=== PATIENT | female | born 1995 | race Caucasian/White ===

== ENCOUNTER 2019-02-23 19:54 | Emergency (ER) | payer MEDICAID ==
[~2019-02-23] VITALS: Ht 162.6 cm; Wt 98.0 kg
[2019-02-23 20:00] VITALS: Ht 162.6 cm; Wt 98.0 kg
[2019-02-23 23:17] LABS: BASOPHIL % 0.2 % (0-2); PLATELET COUNT 242 x10^3mcL (130-400); RED CELL DISTRIBUTION WIDTH 14.3 % (11.5-14.5)
[2019-02-24 00:23] LABS: microscopic required? YES; urine erythrocyte 3+ (NEGATIVE)
[2019-02-24 01:33] VITALS: BP 119/65
== END 2019-02-24 01:33 | disposition home or self-care (01) ==
LOC: ED 19:54
PROVIDERS: Student in an Organized Health Care Education/Training Program
DX: O20.0 Threatened abortion (principal); O99.511 Diseases of the respiratory system complicating pregnancy, first trimester; Z3A.10 10 weeks gestation of pregnancy; Z98.890 Other specified postprocedural states
CPT/HCPCS: 36415